=== PATIENT | female | born 1960 | race African-American/Black ===

== ENCOUNTER 2017-06-02 11:51 | Emergency (ER) | payer MEDICARE, MEDICAID ==
[~2017-06-02] VITALS: Ht 167.6 cm; Wt 160.1 kg
[~2017-06-02 11:51] MED LIST: ACETAMINOPHEN325 M1 PO; DEPAKOTE ER500 MG PO; KLOR-CON 1010 ME1 PO; LASIX 40MG. TAB40 MG PO; LISINOPRIL 10MG10 MG PO; LOPERAMIDE2 MG PO; MAXZIDE 50 MG-71 TAB OR; METFORMIN HCL1000 MG PO; METOPROLOL SUCC50 M1 PO; MOTRIN600 M1 PO; PIOGLITAZONE HY15 MG PO; POTASSIUM CHLO10 ME3 PO; PROMETHAZINE HC25 M1 PO; RANITIDINE HCL300 M1 PO; ROBAFEN100 MG/5 M PO; SEROQUEL XR400 MG PO; VITAMIN D35000 IU PO; XYZAL5 MG PO
--- NOTE | 2017-06-02 12:48 | Emergency Room Report ---
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 N Clinical Suspician of Infection? N Mental Status: 1 - Regular (Normal Baseline) Sepsis Risk:Possible Sepsis Risk Have you (or family members/close friends) recently traveled outside the [place]? N If Yes, where/when: Have you had exposure to infectious disease within the past month? N TB? Other? Specify: 57 years old morbidly obese -[place] lady. Fell out of the bed yesterday on both knees. She is suffering from severe pain involving the LEFT knee and she is unable to use it. She denies hip pain and she has chronic lower back pain. She denies any other injury. Source patient, RN notes reviewed Exam Limitations no limitations ALLERGIES Coded Allergies: aspirin (Mild, 10/19/15) Home Medications Active Scripts Ranitidine Hcl (Ranitidine 300MG) 300 MG PO BID #60 TAB Ref 3 Prov: 08/29/14 Reported Medications Acetaminophen 650 MG PO Q4H PRN PAIN LOPERAMIDE HCL (Loperamide) 2 MG PO Q3H PROMETHAZINE HCL (Promethazine 25mg Tab) 25 MG PO Q6HP PRN N/V Divalproex Sodium (Depakote ER) 1,500 MG PO QHS Furosemide (Lasix 40MG) 20 MG PO BID Ibuprofen (Motrin) 600 MG PO TID METFORMIN HCL (Metformin 1000MG) 1,000 MG PO BID Metoprolol Succinate Xl (Metoprolol ER 50MG) 50 MG PO DAILY PIOGLITAZONE HCL (Pioglitazone HCl) 15 MG PO DAILY Quetiapine Fumarate (Seroquel Xr) 400 MG PO QHS Cholecalciferol (Vitamin D3) 50,000 IUNITS PO WEEKLY Guaifenesin (Robafen) 200 MG PO Q6H PRN COUGH TRIAMTERENE/HYDROCHLOROTHIAZID (Triamterene-Hctz 75-50 MG Tab) 1 EACH OR DAILY History Medical History General CAD? No Angina: No VT: No Hypertension? Yes Hyperlipidemia? No CHF? Yes COPD? No Asthma? No Anemia? No Hernia? No Thyroid Problems? No Hypothyroidism? No CVA? No Seizures? No Diabetes? Yes Insulin Dependent: No Insulin Pump: No Home FSBS? Yes End Stage Renal Disease? No UTI? Yes Stones? No GB Disease: No Nephritic Syndrome? No Asplenia? No Hepatitis? No Sickle Cell Disease? No Arthritis? No Cataracts? No Glaucoma? No MRSA? No TB? No Cancer? 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 Respiratory no symptoms reported Cardiovascular no symptoms reported Gastrointestinal no symptoms reported Genitourinary no symptoms reported. Musculoskeletal see HPI, joint pain Skin no symptoms reported Psychiatric/Neurological no symptoms reported Physical Exam Vital Signs Vital Signs Date Time Temp Pulse Resp B/P Pulse O2 O2 Flow FiO2 Ox Delivery Rate 06/02 1420 98.1 110 18 148/78 96 06/02 1319 18 06/02 1242 98.1 110 20 149/90 96 06/02 1152 98.1 110 20 149/90 96 - WBC >12,000 or <4,000 or 10% bands? 2 or more SIRS Criteria Met? B/P:149/90 MAP:109 Creatinine >2.0? UA output<0.5ml/kg/hr for 2 hrs? Platelet count >100,000? Lactate >2.0mmol/1? INR >1.2 or PTT > than 60 sec? Evidence of Organ Dysfunction? Provider documented clinical suspician of infection? N Sepsis Criteria Count: 2 Sepsis Risk: Possible Sepsis Risk General Appearance normal appearance, WD/WN Eye Exam - bilateral eye normal exam, bilateral eye PERRL, bilateral eye EOMI Ear, Nose, Throat hearing grossly normal, normal ENT inspection Neck normal inspection, non-tender, supple, full range of motion Respiratory Status Yes: trachea midline, chest symmetrical, non tender chest. No: respiratory distress. Lung Sounds bilateral: normal breath sounds, lungs clear. Cardiovascular normal exam, regular rate/rhythm, no peripheral edema, no gallop, no JVD, no murmur, no rub, normal peripheral pulses Gastrointestinal normal bowel sounds, normal exam, non tender, soft, no organomegaly Back normal inspection, no CVA tenderness, no vertebral tenderness Extremities normal inspection, normal capillary refill, no calf tenderness, swelling, patient has chronic venous stasis and edema of the lower extremity. Tenderness on the medial aspect of the tibial plateau. No active range of motion but she was able to flex her knee to 90 degrees passively. Hip and pelvis were stable. 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 No Results/Orders Current Medication Orders Sig/Bernadette Start time Last Medication Dose Route Stop Time Status Admin Hydrocodone Bitart/ 0 .STK-MED ONE 06/02 1315 DC Acetaminophen PO Hydrocodone Bitart/ 1 TAB ONCE ONE 06/02 1300 DC 06/02 Acetaminophen PO 06/02 1301 1319 Orders Procedure Date/time Status DIET-NOTHING BY MOUTH 06/[address] EXT.LOWER-LT-W/O CONTRAST 06/[address] SCAN REQ 06/02 1249 Complete KNEE-3 VIEWS-LT 06/02 1202 Active XRAY/CT/US XRAY/CT/US XRAY knee XR interpretation by reviewed by me, discussed w/radiologist Xray Results no fracture seen Departure Departure Time of Disposition 1452 Disposition DC Home or Self Care(routine) Clinical Impression Primary Impression: Contusion of knee, left Condition STABLE Referrals DENNIS COVINGTON,M S ([facility]) Additional Instructions rest ice elevate see pcp Dr Peña for your final x ray report and medical recheck. Discharge Counseling Counseled pt/family regarding diagnosis, test results, medications/RX, home care, follow up needs ED Critical Care Critical Care No If Critical Care minutes are documented, the time involved in the performance of seperately reportable procedures was not counted toward critical care time documented. I directly delivered medical care to this critically ill and/or injured patient. Timely evaluation and treatment was necessary to address the significant organ system(s) dysfunction present in this patient. at 0215
--- NOTE | 2017-06-02 12:48 | Emergency Room Report ---
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 N Clinical Suspician of Infection? N Mental Status: 1 - Regular (Normal Baseline) Sepsis Risk:Possible Sepsis Risk Have you (or family members/close friends) recently traveled outside the [place]? N If Yes, where/when: Have you had exposure to infectious disease within the past month? N TB? Other? Specify: 57 years old morbidly obese -[place] Citizen lady. Fell out of the bed yesterday on both knees. She is suffering from severe pain involving the LEFT knee and she is unable to use it. She denies hip pain and she has chronic lower back pain. She denies any other injury. Source patient, RN notes reviewed Exam Limitations no limitations ALLERGIES Coded Allergies: aspirin (Mild, 10/19/15) Home Medications Active Scripts Ranitidine Hcl (Ranitidine 300MG) 300 MG PO BID #60 TAB Ref 3 Prov: 08/29/14 Reported Medications Acetaminophen 650 MG PO Q4H PRN PAIN LOPERAMIDE HCL (Loperamide) 2 MG PO Q3H PROMETHAZINE HCL (Promethazine 25mg Tab) 25 MG PO Q6HP PRN N/V Divalproex Sodium (Depakote ER) 1,500 MG PO QHS Furosemide (Lasix 40MG) 20 MG PO BID Ibuprofen (Motrin) 600 MG PO TID METFORMIN HCL (Metformin 1000MG) 1,000 MG PO BID Metoprolol Succinate Xl (Metoprolol ER 50MG) 50 MG PO DAILY PIOGLITAZONE HCL (Pioglitazone HCl) 15 MG PO DAILY Quetiapine Fumarate (Seroquel Xr) 400 MG PO QHS Cholecalciferol (Vitamin D3) 50,000 IUNITS PO WEEKLY Guaifenesin (Robafen) 200 MG PO Q6H PRN COUGH TRIAMTERENE/HYDROCHLOROTHIAZID (Triamterene-Hctz 75-50 MG Tab) 1 EACH OR DAILY History Medical History General CAD? No Angina: No MS: No Hypertension? Yes Hyperlipidemia? No CHF? Yes COPD? No Asthma? No Anemia? No Hernia? No Thyroid Problems? No Hypothyroidism? No CVA? No Seizures? No Diabetes? Yes Insulin Dependent: No Insulin Pump: No Home FSBS? Yes End Stage Renal Disease? No UTI? Yes Stones? No GB Disease: No Nephritic Syndrome? No Asplenia? No Hepatitis? No Sickle Cell Disease? No Arthritis? No Cataracts? No Glaucoma? No MRSA? No TB? No Cancer? 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 Respiratory no symptoms reported Cardiovascular no symptoms reported Gastrointestinal no symptoms reported Genitourinary no symptoms reported. Musculoskeletal see HPI, joint pain Skin no symptoms reported Psychiatric/Neurological no symptoms reported Physical Exam Vital Signs Vital Signs Date Time Temp Pulse Resp B/P Pulse O2 O2 Flow FiO2 Ox Delivery Rate 06/02 1420 98.1 110 18 148/78 96 06/02 1319 18 06/02 1242 98.1 110 20 149/90 96 06/02 1152 98.1 110 20 149/90 96 - WBC >12,000 or <4,000 or 10% bands? 2 or more SIRS Criteria Met? B/P:149/90 MAP:109 Creatinine >2.0? UA output<0.5ml/kg/hr for 2 hrs? Platelet count >100,000? Lactate >2.0mmol/1? INR >1.2 or PTT > than 60 sec? Evidence of Organ Dysfunction? Provider documented clinical suspician of infection? N Sepsis Criteria Count: 2 Sepsis Risk: Possible Sepsis Risk General Appearance normal appearance, WD/WN Eye Exam - bilateral eye normal exam, bilateral eye PERRL, bilateral eye EOMI Ear, Nose, Throat hearing grossly normal, normal ENT inspection Neck normal inspection, non-tender, supple, full range of motion Respiratory Status Yes: trachea midline, chest symmetrical, non tender chest. No: respiratory distress. Lung Sounds bilateral: normal breath sounds, lungs clear. Cardiovascular normal exam, regular rate/rhythm, no peripheral edema, no gallop, no JVD, no murmur, no rub, normal peripheral pulses Gastrointestinal normal bowel sounds, normal exam, non tender, soft, no organomegaly Back normal inspection, no CVA tenderness, no vertebral tenderness Extremities normal inspection, normal capillary refill, no calf tenderness, swelling, patient has chronic venous stasis and edema of the lower extremity. Tenderness on the medial aspect of the tibial plateau. No active range of motion but she was able to flex her knee to 90 degrees passively. Hip and pelvis were stable. 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 No Results/Orders Current Medication Orders Sig/Bernadette Start time Last Medication Dose Route Stop Time Status Admin Hydrocodone Bitart/ 0 .STK-MED ONE 06/02 1315 DC Acetaminophen PO Hydrocodone Bitart/ 1 TAB ONCE ONE 06/02 1300 DC 06/02 Acetaminophen PO 06/02 1301 1319 Orders Procedure Date/time Status DIET-NOTHING BY MOUTH 06/[address] EXT.LOWER-LT-W/O CONTRAST 06/[address] SCAN REQ 06/02 1249 Complete KNEE-3 VIEWS-LT 06/02 1202 Active XRAY/CT/US XRAY/CT/US XRAY knee XR interpretation by reviewed by me, discussed w/radiologist Xray Results no fracture seen Departure Departure Time of Disposition 1452 Disposition DC Home or Self Care(routine) Clinical Impression Primary Impression: Contusion of knee, left Condition STABLE Referrals DENNIS COVINGTON,M S ([facility]) Additional Instructions rest ice elevate see pcp Dr Peña for your final x ray report and medical recheck. Discharge Counseling Counseled pt/family regarding diagnosis, test results, medications/RX, home care, follow up needs ED Critical Care Critical Care No If Critical Care minutes are documented, the time involved in the performance of seperately reportable procedures was not counted toward critical care time documented. I directly delivered medical care to this critically ill and/or injured patient. Timely evaluation and treatment was necessary to address the significant organ system(s) dysfunction present in this patient. at 3138
[2017-06-02 15:08] VITALS: BP 147/77
--- NOTE | 2017-06-02 17:43 | RADIOLOGY REPORT PS360 ---
CT EXT.LOWER-LT-W/O CONTRAST INDICATION: Pain with limited range of motion FELL ON HER LEFT KNEE AND NOW CAN'T MOVE IT. ORDERING PHYSICIAN: Zulema Mary MD PATIENT AGE: 57 years COMPARISON: Plain film of the same day TECHNIQUE: Axial images are obtained without contrast. Sagittal and coronal reformatted images are reviewed as well. FINDINGS: There are moderate osteoarthritic changes involving all 3 compartments. No fracture or dislocation is evident. No lytic or blastic change. Mildly prominent osteophytes are present involving all 3 compartments. There is a small knee joint effusion. There is mild diffuse subcutaneous soft tissue swelling in the legs. Generalized vascular calcification is noted. IMPRESSION: 1. No acute fracture. 2. Osteoarthritis with knee joint effusion. 3. Subcutaneous soft tissue swelling of the leg Pain with limited range of motion
--- NOTE | 2017-06-02 17:44 | RADIOLOGY REPORT PS360 ---
KNEE-3 VIEWS-LT HISTORY: Pain following injury with limited range of motion FALL ORDERING PHYSICIAN: Zulema Mary MD PATIENT AGE: 57 years COMPARISON: None FINDINGS: No fracture or dislocation. No lytic or blastic change. Normal mineralization. Moderate tricompartmental osteoarthritic changes are noted. No lytic or blastic change. IMPRESSION: No acute fracture. Osteoarthritis
== END 2017-06-02 15:20 | disposition home or self-care (01) ==
LOC: ER 11:51
DX: S80.02XA Contusion of left knee, initial encounter (principal); W01.0XXA Fall on same level from slipping, tripping and stumbling without subsequent striking against object, initial encounter; Y92.013 Bedroom of single-family (private) house as the place of occurrence of the external cause; E66.01 Morbid (severe) obesity due to excess calories; Z88.6 Allergy status to analgesic agent; Z79.899 Other long term (current) drug therapy; I10 Essential (primary) hypertension; I50.9 Heart failure, unspecified; E11.9 Type 2 diabetes mellitus without complications; F17.210 Nicotine dependence, cigarettes, uncomplicated